=== PATIENT | female | born 1935 | race Caucasian/White ===

== ENCOUNTER 2022-04-14 10:15 | Outpatient (RCR) | payer MEDICARE, OTHER, MEDICAID, SELFPAY ==
[2022-04-07 10:12] VITALS: TEMP 36.1
--- NOTE | 2022-04-07 12:40 | PCM.WC.HP ---
History of Present Illness Date of Service: 04/07/22 Chief Complaint: Follow-up on open wounds around her ostomy History of Wound: This is a 87-year-old white female that had a bowel obstruction and was given a colostomy approximately 2 years ago. She lives in assisted living and usually takes care of it with a aide or herself. Poor historian not sure when all the sores developed around the ostomy opening but she has open wounds and skin irritation. Has been going to another wound center and she is getting discouraged because her not doing anything. We talked to our ostomy nurse from the hospital to come over and take a look at what she thought. She also felt her ostomy cuff was too stiff and found her a softer 1 that might not be as irritating and cause any bruising. She has some discoloration like and little bit of a hardness on the inferior side of the ostomy also. She also had developed like a skin tag and a little bridge of skin that we will removed today. ROS Constitutional Constitutional: Reports systems reviewed and no addt'l complaints, except as documented Eyes Eyes: Reports systems reviewed and no addt'l complaints, except as documented ENT HEENT: Reports systems reviewed and no addt'l complaints, except as documented Cardiovascular Cardiovascular: Reports systems reviewed and no addt'l complaints, except as documented Respiratory/Chest Respiratory/Chest: Reports systems reviewed and no addt'l complaints, except as documented Gastrointestinal Gastrointestinal: Reports systems reviewed and no addt'l complaints, except as documented Genitourinary Genitourinary: Reports systems reviewed and no addt'l complaints, except as documented Musculoskeletal Musculoskeletal: Reports systems reviewed and no addt'l complaints, except as documented Integumentary Integumentary: Reports other Details: Irritation and open sores around ostomy area on left lower quadrant Neurologic Neurologic: Reports systems reviewed and no addt'l complaints, except as documented Psychiatric Psychiatric: Reports systems reviewed and no addt'l complaints, except as documented Endocrine Endocrinology: Reports systems reviewed and no addt'l complaints, except as documented Hematologic/Lymphatic Hematologic/Lymphatic: Reports systems reviewed and no addt'l complaints, except as documented Allergic/Immunologic Allergic/Immunologic: Reports systems reviewed and no addt'l complaints, except as documented Vital Signs Vital Signs Vital Signs: 04/07/22 10:12 Temperature 96.9 F L Temperature Source Temporal Physical Exam Const oriented x3 General Appearance: cooperative Exam Limitations: no limitations Resp normal respiratory effort Effort and Inspection: able to speak in complete sentences Auscultation: clear to auscultation bilaterally Cardio regular rate and regular rhythm Palpation: normal PMI Rate: regular rate Rhythm: regular rhythm GI Auscultation: normoactive bowel sounds Palpation: soft and no hepatosplenomegaly external exam normal Skin no rashes or lesions noted Neuro oriented x3 Psych Appearance: grossly normal Speech: normal speech Thought Content: normal thought content Judgement: judgement good Debridement Note Debridement Note Wound debrided: Cluster of ulcers around her colostomy Type of Debridement: Excisional debridement Anesthesia Used: 5% Lidocaine Gel Depth: Down to and including healthy tissue and in the subcutaneous layer Percentage of wound debrided: 100 Instrument Used: 5mm curette Tissue Removed: Fibrin Severity: Fat Layer Exposed Amount of bleeding with debridement: Mild Bleeding Controlled with: Compression and gauze Patient tolerated procedure: Patient tolerated procedure well Debridement Free Text: We also anesthetized superior side a very large skin tag with lidocaine 1% with epi and removed with a #15 blade and scissors cauterizing for the bleeding and she tolerated well Operative Diagnosis: Skin tag Post-Debridement Measurements and Additional Note: Post-Debridement Measurements/Treatment WC - Nurse 1 - General Ulcer Assessment Start: 04/07/22 10:11 Freq: Status: Active Protocol: TIMMY Activity Type Activity Date Activity User E-sign Co-sign Detail Recorded Client Recorded Date Recorded By Document 04/07/22 10:12 BRYON [id number] 04/07/22 10:17 BRYON 04/07/22 10:12 MICHAEL - Today's Visit Information Type of service Initial Visit Arrival Mode Ambulatory, Walker Patient Identification Verified (Name & Yes ) Patient Requires Transmission-Based No Precautions Safety Precautions NA Vital Signs Temperature (97.8 F-99.1 F) 96.9 F L Temperature Source Temporal Pain Scale: 0-10 Numeric Is Patient Pain Free? Yes - Nurse 1 - General Ulcer Measurement Start: 04/07/22 10:11 Freq: Status: Active Protocol: Activity Type Activity Date Activity User E-sign Co-sign Detail Recorded Client Recorded Date Recorded By Document 04/07/22 10:12 BRYON [id number] 04/07/22 10:17 AK 04/07/22 10:12 Wound Center Nurse 1 #1 ABD cluster -Current Size (cm) - Length 6.4 -Current Size (cm) - Width 8.4 -Current Size (cm) - Depth 0.2 -Total Square Cm 53.76 -Date of Last Picture (Recall this 04/07/22 field) -Photo Taken Yes -Tunneling No -Undermining/Tunneling No -Circular Undermining No -Change in Wound Grade/Stage No -Exudate Amt Medium -Exudate Type Serosanguineous -Wound Margin Distinct, Outline Attached -Granulation Amt Medium (34-66%) -Granulation Quality [place],Red -Slough/Fibrin No -Necrosis Amt None Present (0 %) -Structure Exposed N/A -Texture (Linda-wound Skin Appearance) Assessed, Localized Edema ,Scarring -Moisture (Linda-wound Skin Appearance) No Abnormality, Assessed -Color (Linda-wound Skin Appearance) Assessed, Erythema -Temperature (Linda-wound Skin No Abnormality Appearance) (Pt Warm) -Tenderness on Palpation (Linda-wound No Skin Appearance) -Foul Odor after Cleansing No WC - Nurse 2 - General Ulcer CM Notes Start: 04/07/22 10:11 Freq: Status: Active Protocol: Activity Type Activity Date Activity User E-sign Co-sign Detail Recorded Client Recorded Date Recorded By Document 04/07/22 10:45 MW [id number] 04/07/22 11:24 MW 04/07/22 10:45 Wound Center Nurse 2 -Time 10:45 -Correct Patient Yes -Correct Side, Site, Position Yes -Correct Procedure Yes -Procedure Performed Yes -Type of Procedure Debridement -Clinical Debridement Subcutaneous -Tissue Removed Subcutaneous -Post Debridement (cm) - Length 6.5 -Post Debridement (cm) - Width 8.5 -Post Debridement (cm) - Depth 0.2 -Total Square (Post) (cm) 55.25 -Area of Debridement (cm) - Length 6.5 -Area of Debridement (cm) - Width 8.5 -Total Square (Area) (cm) 55.25 -Tunneling No -Undermining/Tunneling No -Circular Undermining No -Wound/Ulcer Outcome Not Healed -Ulcer Cleansing Rinsed/ Irrigated with Saline -Foul Odor after Cleansing No -Bioengineered Tissue No -Bleeding Controlled with Pressure,Silver Nitrate -Treatment Response Procedure Tolerated Well -Offloading No -Debridement - Subq, 1st 20sq cm Yes -Debridement, SubQ, ea addt'l 20sq cm 2 or part thereof Pain Scale: 0-10 Numeric Is Patient Pain Free? Yes WC - Nurse 3 - General Ulcer D/C NN Start: 04/07/22 10:11 Freq: Status: Active Protocol: Activity Type Activity Date Activity User E-sign Co-sign Detail Recorded Client Recorded Date Recorded By Document 04/07/22 10:12 BRYON [id number] 04/07/22 10:17 BRYON 04/07/22 10:12 Vital Signs Temperature (97.8 F-99.1 F) 96.9 F L Temperature Source Temporal Pain Scale: 0-10 Numeric Is Patient Pain Free? 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 Area of colostomy bag with antibacterial soap pat dry and Aquacel extra to wound bases of the ulcers cover with ComfeeL and then flange softer that is not stiff. And this will be done every other day. Patient is to repeat be referred back to her surgeon Follow-up in 1 week
[2022-04-14 10:24] VITALS: BP 176/77; PULSE 72; RESP 22; TEMP 36; O2SAT 90
--- NOTE | 2022-04-14 12:06 | PN.PCM_ITS ---
History of Present Illness Date of Service: 04/14/22 Chief Complaint: Follow-up on open wounds around her ostomy History of Wound: This is a 87-year-old white female that had a bowel obstruction and was given a colostomy approximately 2 years ago. She lives in assisted living and usually takes care of it with a aide or herself. Poor historian not sure when all the sores developed around the ostomy opening but she has open wounds and skin irritation. Has been going to another wound center and she is getting discouraged because her not doing anything. We talked to our ostomy nurse from the hospital to come over and take a look at what she thought. She also felt her ostomy cuff was too stiff and found her a softer 1 that might not be as irritating and cause any bruising. She has some discoloration like and little bit of a hardness on the inferior side of the ostomy also. She also had developed like a skin tag and a little bridge of skin that we will removed today. Progress of Wound: Just receiving the supplies today for her wound care. The wounds have not worsened but improving slightly. Did finally get the name of the surgeon to her refer her to. Patient states her rectum falls out he also. She does have a prolapsed colostomy to. Cultures obtained from area around because of the area and the stool. Patient also complaining of wheezing and not feeling well for x1 day. We will send her to the emergency room in [place]. Her assisted living is close to that emergency room Subjective Subjective States having some hard time sleeping at night for the breathing problem and coughing Objective Data Objective Data As stated above no real change because she has not had any of the dressing changes that we have had came to us without an extra bag so we had to go to the hospital to get another bag for her. Areas of concern are not worsening. We will continue seeing her but we will refer her back to her surgeon. Obtained cultures for aerobic and anaerobic bacteria Vital Signs: Vital Signs Temp Pulse Resp BP Pulse Ox O2 Del Method 96.8 F L 72 22 H 176/77 H 90 Room Air 04/14/22 10:24 04/14/22 10:24 04/14/22 10:24 04/14/22 10:24 04/14/22 10:24 04/14/22 10:24 Oxygen Delivery Method Room Air Lab / Micro Data Attestation: I reviewed the patient's lab results. Physical Exam Const oriented x3 General Appearance: cooperative Exam Limitations: no limitations Resp normal respiratory effort Effort and Inspection: able to speak in complete sentences Auscultation: clear to auscultation bilaterally Cardio regular rate and regular rhythm Palpation: normal PMI Rate: regular rate Rhythm: regular rhythm GI Auscultation: normoactive bowel sounds Palpation: soft and no hepatosplenomegaly external exam normal Skin no rashes or lesions noted Neuro oriented x3 Psych Appearance: grossly normal Speech: normal speech Thought Content: normal thought content Judgement: judgement good Debridement Note Debridement Note Wound debrided: Nonhealing cluster wounds around ostomy Type of Debridement: Excisional debridement Anesthesia Used: 5% Lidocaine Gel Depth: Down to and including healthy tissue Percentage of wound debrided: 100 Instrument Used: 7mm curette Tissue Removed: Fibrin Severity: Limited To Skin Breakdown Amount of bleeding with debridement: Mild Bleeding Controlled with: Compression and gauze Patient tolerated procedure: Patient tolerated procedure well Post-Debridement Measurements and Additional Note: Post-Debridement Measurements/Treatment - Nurse 1 - General Ulcer Assessment Start: 04/07/22 10:11 Freq: Status: Active Protocol: [email or web address].JAMEE Activity Type Activity Date Activity User E-sign Co-sign Detail Recorded Client Recorded Date Recorded By Document 04/07/22 10:12 [facility] [id number] 04/07/22 10:17 UT Document 04/14/22 10:24 [facility] [id number] 04/14/22 10:45 [facility] 04/07/22 04/14/22 10:12 10:24 - Today's Visit Information Type of service Initial Visit Follow-up Visit (Physician/CLINICAL ORTHOPTIST ) Arrival Mode Ambulatory, Ambulatory, Walker Walker Transfer Assistance None Patient Identification Verified (Name & Yes Yes ) Patient Requires Transmission-Based No No Precautions Safety Precautions NA Vital Signs Temperature (97.8 F-99.1 F) 96.9 F L 96.8 F L Temperature Source Temporal Temporal Pulse Rate (60-100) 72 Pulse Location Monitor Respiratory Rate (12-18) 22 H Respiratory rate source Observation Pulse Oximetry 90 Oxygen Delivery Method Room Air Blood Pressure (90/60-120/80) 176/77 H Blood Pressure Mean (mm Hg) 110 Source Monitor Position Sitting Blood Pressure Location Right Arm History Since Last Visit- (Skip if this is Patient's initial visit) Have you changed medications since your No last visit? Any new allergies or adverse reactions No Had a fall/change in ADL's that may No increase risk of falls Signs or symptoms of abuse and/or No neglect since last visit Have you been in the hospital since your No last visit? Has dressing in place as prescribed No Has compression in place as prescribed N/A Has offloadiing in place as prescribed N/A Experienced any changes in pain level or No management Left Footwear Regular Shoe Right Footwear Regular Shoe Pain Scale: 0-10 Numeric Is Patient Pain Free? Yes Yes WC - Nurse 1 - General Ulcer Measurement Start: 04/07/22 10:11 Freq: Status: Active Protocol: Activity Type Activity Date Activity User E-sign Co-sign Detail Recorded Client Recorded Date Recorded By Document 04/07/22 10:12 UT [id number] 04/07/22 10:17 AK Document 04/14/22 10:24 [facility] [id number] 04/14/22 10:45 [facility] 04/07/22 04/14/22 10:12 10:24 Wound Center Nurse 1 #1 ABD cluster -Combined with other wound No -Current Size (cm) - Length 6.4 6 -Current Size (cm) - Width 8.4 6 -Current Size (cm) - Depth 0.2 0.1 -Total Square Cm 53.76 36 -Date of Last Picture (Recall this 04/07/22 04/14/22 field) -Photo Taken Yes Yes -Epithelialization None Present -Tunneling No No -Undermining/Tunneling No No -Circular Undermining No No -Change in Wound Grade/Stage No -Exudate Amt Medium -Exudate Type Serosanguineous -Wound Margin Distinct, Distinct, Outline Outline Attached Attached -Granulation Amt Medium (34-66%) Large (67-100%) -Granulation Quality [place],Red Red -Slough/Fibrin No No -Necrosis Amt None Present (0 None Present (0 %) %) -Structure Exposed N/A -Texture (Linda-wound Skin Appearance) Assessed, Assessed, Localized Edema Scarring ,Scarring -Moisture (Linda-wound Skin Appearance) No Abnormality, Assessed Assessed -Color (Linda-wound Skin Appearance) Assessed, Assessed Erythema -Temperature (Linda-wound Skin No Abnormality No Abnormality Appearance) (Pt Warm) (Pt Warm) -Tenderness on Palpation (Linda-wound No No Skin Appearance) -Ulcer Cleansing Soap and Water -Foul Odor after Cleansing No No -Anesthetic Used 4% Lidocaine Solution WC - Nurse 2 - General Ulcer CM Notes Start: 04/07/22 10:11 Freq: Status: Active Protocol: Activity Type Activity Date Activity User E-sign Co-sign Detail Recorded Client Recorded Date Recorded By Document 04/07/22 10:45 MW [id number] 04/07/22 11:24 MW Document 04/14/22 10:50 MW [id number] 04/14/22 11:01 MW 04/07/22 04/14/22 10:45 10:50 Wound Center Nurse 2 #1 ABD cluster -Time 10:45 11:01 -Correct Patient Yes Yes -Correct Side, Site, Position Yes Yes -Correct Procedure Yes Yes -Procedure Performed Yes Yes -Type of Procedure Debridement Debridement -Clinical Debridement Subcutaneous Subcutaneous -Tissue Removed Subcutaneous Subcutaneous -Post Debridement (cm) - Length 6.5 6.0 -Post Debridement (cm) - Width 8.5 8.5 -Post Debridement (cm) - Depth 0.2 0.2 -Total Square (Post) (cm) 55.25 51.00 -Area of Debridement (cm) - Length 6.5 6.0 -Area of Debridement (cm) - Width 8.5 8.5 -Total Square (Area) (cm) 55.25 51.00 -Tunneling No No -Undermining/Tunneling No No -Circular Undermining No No -Wound/Ulcer Outcome Not Healed Not Healed -Ulcer Cleansing Rinsed/ Rinsed/ Irrigated with Irrigated with Saline Saline -Foul Odor after Cleansing No No -Bioengineered Tissue No No -Bleeding Controlled with Pressure,Silver Pressure Nitrate -Treatment Response Procedure Procedure Tolerated Well Tolerated Well -Offloading No No -Debridement - Subq, 1st 20sq cm Yes Yes -Debridement, SubQ, ea addt'l 20sq cm 2 2 or part thereof Pain Scale: 0-10 Numeric Is Patient Pain Free? Yes Yes MICHAEL - Nurse 3 - General Ulcer D/C NN Start: 04/07/22 10:11 Freq: Status: Active Protocol: Activity Type Activity Date Activity User E-sign Co-sign Detail Recorded Client Recorded Date Recorded By Document 04/07/22 10:12 [facility] [id number] 04/07/22 10:17 AK Document 04/14/22 11:08 [facility] [id number] 04/14/22 11:09 [facility] 04/07/22 04/14/22 10:12 11:08 Vital Signs Temperature (97.8 F-99.1 F) 96.9 F L Temperature Source Temporal Pain Scale: 0-10 Numeric Is Patient Pain Free? 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 Area of colostomy bag with antibacterial soap pat dry and Aquacel extra to wound bases of the ulcers cover with ComfeeL and then flange softer that is not stiff. And this will be done every other day. Patient is to repeat be referred back to her surgeon Will call with culture results as they come in. Follow-up in 1 week
--- NOTE | 2022-04-16 14:47 | WC ---
Spoke to nurse at [facility] to follow up on patient office visit on 04/14/22 with Laura Armas OPERATIONS CONSULTANT. Patient was having audible wheezing and coughing so Luara recommended patient be evaluated at ER. Patient requested to go to [facility] ER. Nurse at [facility] stated patient tested positive for influenza A but is doing well. Laura notified.
== END 2022-04-14 23:59 | disposition home or self-care (01) ==
LOC: WC 10:15
PROVIDERS: PCP Family Medicine; Visit Provider Nurse Practitioner
DX: K94.09 Other complications of colostomy (principal); L98.492 Non-pressure chronic ulcer of skin of other sites with fat layer exposed
CPT/HCPCS: 11042; 11045; 87070; 87075; 87077; 87186; 87205; 99203; 99213; G0463

== ENCOUNTER 2022-05-12 10:00 | Outpatient (RCR) | payer MEDICARE, OTHER, MEDICAID, SELFPAY ==
[2022-04-15 00:41] VITALS: BP 176/77; PULSE 72; RESP 22; TEMP 36; O2SAT 90
[2022-04-21 10:33] VITALS: BP 146/66; PULSE 79; RESP 16; TEMP 35.9
--- NOTE | 2022-04-21 12:10 | PN.PCM_ITS ---
History of Present Illness Date of Service: 04/21/22 Chief Complaint: Follow-up on open wounds around her ostomy History of Wound: This is a 87-year-old white female that had a bowel obstruction and was given a colostomy approximately 2 years ago. She lives in assisted living and usually takes care of it with a aide or herself. Poor historian not sure when all the sores developed around the ostomy opening but she has open wounds and skin irritation. Has been going to another wound center and she is getting discouraged because her not doing anything. We talked to our ostomy nurse from the hospital to come over and take a look at what she thought. She also felt her ostomy cuff was too stiff and found her a softer 1 that might not be as irritating and cause any bruising. She has some discoloration like and little bit of a hardness on the inferior side of the ostomy also. She also had developed like a skin tag and a little bridge of skin that we will removed today. Progress of Wound: Wounds today around the stoma look much better. Cultures came back positive for cocci and bacteria patient is started on 2 medications and antibiotic and antimicrobial. Patient also had influenza A and is feeling better over that still has some cough. Subjective Subjective Patient is pleasantly surprised with how the outcomes are Objective Data Objective Data Measurements are smaller healing is better less angry depth is better patient is tolerating medications okay. Vital Signs: Vital Signs Temp Pulse Resp BP Pulse Ox O2 Del Method 96.6 F L 79 16 146/66 H 90 Room Air 04/21/22 10:33 04/21/22 10:33 04/21/22 10:33 04/21/22 10:33 04/15/22 00:41 04/21/22 10:33 Oxygen Delivery Method Room Air Lab / Micro Data Attestation: I reviewed the patient's lab results. Physical Exam Const oriented x3 General Appearance: cooperative Exam Limitations: no limitations Resp normal respiratory effort Effort and Inspection: able to speak in complete sentences Auscultation: clear to auscultation bilaterally Cardio regular rate and regular rhythm Palpation: normal PMI Rate: regular rate Rhythm: regular rhythm GI Auscultation: normoactive bowel sounds Palpation: soft and no hepatosplenomegaly external exam normal Skin no rashes or lesions noted Neuro oriented x3 Psych Appearance: grossly normal Speech: normal speech Thought Content: normal thought content Judgement: judgement good Debridement Note Debridement Note Wound debrided: Cluster ulcers around stoma Type of Debridement: Excisional debridement Anesthesia Used: 4% Lidocaine Solution and 5% Lidocaine Gel Depth: Down to and including healthy tissue and in the subcutaneous layer Percentage of wound debrided: 100 Instrument Used: 5mm curette Tissue Removed: Fibrin Severity: Fat Layer Exposed Amount of bleeding with debridement: Mild Bleeding Controlled with: Compression and gauze Patient tolerated procedure: Patient tolerated procedure well Post-Debridement Measurements and Additional Note: Post-Debridement Measurements/Treatment WC - Nurse 1 - General Ulcer Assessment Start: 04/21/22 10:29 Freq: Status: Active Protocol: TIMMY Activity Type Activity Date Activity User E-sign Co-sign Detail Recorded Client Recorded Date Recorded By Document 04/21/22 10:33 BRYON [id number] 04/21/22 10:36 BRYON 04/21/22 10:33 WC - Today's Visit Information Type of service Follow-up Visit (Physician/AUTOMATED PROCESS OPERATOR ) Arrival Mode Ambulatory, Walker Transfer Assistance None Patient Identification Verified (Name & Yes ) Patient Requires Transmission-Based No Precautions Vital Signs Temperature (97.8 F-99.1 F) 96.6 F L Temperature Source Temporal Pulse Rate (60-100) 79 Pulse Location Monitor Respiratory Rate (12-18) 16 Respiratory rate source Observation Oxygen Delivery Method Room Air Blood Pressure (90/60-120/80) 146/66 H Blood Pressure Mean (mm Hg) 92 Source Monitor Position Sitting Blood Pressure Location Right Arm History Since Last Visit- (Skip if this is Patient's initial visit) Any new allergies or adverse reactions No Had a fall/change in ADL's that may No increase risk of falls Signs or symptoms of abuse and/or No neglect since last visit Have you been in the hospital since your No last visit? Has dressing in place as prescribed Yes Has compression in place as prescribed N/A Has offloadiing in place as prescribed N/A Experienced any changes in pain level or No management Left Footwear Regular Shoe Right Footwear Regular Shoe Pain Scale: 0-10 Numeric Is Patient Pain Free? Yes MICHAEL - Nurse 1 - General Ulcer Measurement Start: 04/21/22 10:29 Freq: Status: Active Protocol: Activity Type Activity Date Activity User E-sign Co-sign Detail Recorded Client Recorded Date Recorded By Document 12/07/22 10:33 AK [id number] 04/21/22 10:36 AK 04/21/22 10:33 Wound Center Nurse 1 #1 ABD cluster -Combined with other wound No -Current Size (cm) - Length 6 -Current Size (cm) - Width 5 -Current Size (cm) - Depth 0.1 -Total Square Cm 30 -Date of Last Picture (Recall this 04/21/22 field) -Photo Taken Yes -Epithelialization Small 1-33% -Tunneling No -Undermining/Tunneling No -Circular Undermining No -Exudate Amt Medium -Exudate Type Serosanguineous -Wound Margin Distinct, Outline Attached -Granulation Amt Medium (34-66%) -Granulation Quality Red -Slough/Fibrin Yes -Necrosis Amt Medium (34-66%) -Necrotic Tissue Type Adherent Slough -Texture (Linda-wound Skin Appearance) Assessed, Scarring -Moisture (Linda-wound Skin Appearance) Assessed -Color (Linda-wound Skin Appearance) No Abnormality, Erythema -Temperature (Linda-wound Skin No Abnormality Appearance) (Pt Warm) -Tenderness on Palpation (Linda-wound No Skin Appearance) -Ulcer Cleansing Soap and Water -Foul Odor after Cleansing No -Anesthetic Used 4% Lidocaine Solution WC - Nurse 2 - General Ulcer CM Notes Start: 04/21/22 10:29 Freq: Status: Active Protocol: Activity Type Activity Date Activity User E-sign Co-sign Detail Recorded Client Recorded Date Recorded By Document 04/21/22 10:44 MW [id number] 04/21/22 10:47 MW 04/21/22 10:44 Wound Center Nurse 2 -Time 10:44 -Correct Patient Yes -Correct Side, Site, Position Yes -Correct Procedure Yes -Procedure Performed Yes -Type of Procedure Debridement -Clinical Debridement Subcutaneous -Tissue Removed Subcutaneous -Post Debridement (cm) - Length 6.0 -Post Debridement (cm) - Width 6.5 -Post Debridement (cm) - Depth 0.1 -Total Square (Post) (cm) 39.00 -Area of Debridement (cm) - Length 6.0 -Area of Debridement (cm) - Width 6.5 -Total Square (Area) (cm) 39.00 -Tunneling No -Undermining/Tunneling No -Circular Undermining No -Wound/Ulcer Outcome Not Healed -Ulcer Cleansing Rinsed/ Irrigated with Saline -Foul Odor after Cleansing No -Bioengineered Tissue No -Bleeding Controlled with Pressure -Treatment Response Procedure Tolerated Well -Offloading No -Debridement - Subq, 1st 20sq cm Yes -Debridement, SubQ, ea addt'l 20sq cm 1 or part thereof Pain Scale: 0-10 Numeric Is Patient Pain Free? Yes - Nurse 3 - General Ulcer D/C NN Start: 04/21/22 10:29 Freq: Status: Active Protocol: Activity Type Activity Date Activity User E-sign Co-sign Detail Recorded Client Recorded Date Recorded By Document 04/21/22 11:33 BRYON [id number] 04/21/22 11:34 BRYON 04/21/22 11:33 Wound Care Nurse 3 #1 ABD cluster -Ulcer Cleansing Rinsed/ Irrigated with Saline -Foul Odor after Cleansing No -Negative Pressure Wound Therapy N/A -Primary Dressing Applied Aquacel AG 4x4 -Other Dressing DUODERM UNDER FLANGE OVER AQUACEL -Aquacel AG 4x4 1 Pain Scale: 0-10 Numeric Is Patient Pain Free? 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 Area of colostomy bag with antibacterial soap pat dry and Aquacel extra to wound bases of the ulcers cover with ComfeeL and then flange softer that is not stiff. And this will be done every other day. Patient is to repeat be referred back to her surgeon Will call with culture results as they come in. Follow-up in 1 week
[2022-04-28 10:47] VITALS: BP 144/75; PULSE 69; TEMP 35.9
--- NOTE | 2022-04-28 12:27 | PN.PCM_ITS ---
History of Present Illness Date of Service: 04/28/22 Chief Complaint: Follow-up on open wounds around her ostomy History of Wound: This is a 87-year-old white female that had a bowel obstruction and was given a colostomy approximately 2 years ago. She lives in assisted living and usually takes care of it with a aide or herself. Poor historian not sure when all the sores developed around the ostomy opening but she has open wounds and skin irritation. Has been going to another wound center and she is getting discouraged because her not doing anything. We talked to our ostomy nurse from the hospital to come over and take a look at what she thought. She also felt her ostomy cuff was too stiff and found her a softer 1 that might not be as irritating and cause any bruising. She has some discoloration like and little bit of a hardness on the inferior side of the ostomy also. She also had developed like a skin tag and a little bridge of skin that we will removed today. Progress of Wound: Wounds today around the stoma look much better. Showing some hypergranulation around the stoma now and most of it is closed small portion in the right lower quadrant area of the stoma area is still open. Measurements are much smaller. Patient still has not seen by her surgeon. I think using the softer flange has made a big difference in her care. We will continue using the Aquacel silver and the clear cannot feel trans parent cover under the flange. Patient appears to suffer from a little bit of dementia and gets confused easily. Subjective Subjective She still complains of problems but it really is healing well Objective Data Objective Data Overall area is smaller healing no sign of infection noted. She did have some hyper granulation I will hit with some nitro sticks to back off. Vital Signs: Vital Signs Temp Pulse Resp BP Pulse Ox O2 Del Method 96.6 F L 69 16 144/75 H 90 Room Air 04/28/22 10:47 04/28/22 10:47 04/21/22 10:33 04/28/22 10:47 04/15/22 00:41 04/21/22 10:33 Oxygen Delivery Method Room Air Lab / Micro Data Attestation: I reviewed the patient's lab results. Physical Exam Const oriented x3 General Appearance: cooperative Exam Limitations: no limitations Resp normal respiratory effort Effort and Inspection: able to speak in complete sentences Auscultation: clear to auscultation bilaterally Cardio regular rate and regular rhythm Palpation: normal PMI Rate: regular rate Rhythm: regular rhythm GI Auscultation: normoactive bowel sounds Palpation: soft and no hepatosplenomegaly external exam normal Skin no rashes or lesions noted Neuro oriented x3 Psych Appearance: grossly normal Speech: normal speech Thought Content: normal thought content Judgement: judgement good Debridement Note Debridement Note Wound debrided: Stoma cluster ulcers Type of Debridement: Excisional debridement Anesthesia Used: 5% Lidocaine Gel Depth: in the subcutaneous layer Percentage of wound debrided: 100 Instrument Used: 3mm curette Tissue Removed: Fibrin Severity: Limited To Skin Breakdown Amount of bleeding with debridement: Mild Bleeding Controlled with: Compression and gauze and Silver Nitrate Patient tolerated procedure: Patient tolerated procedure well Post-Debridement Measurements and Additional Note: Post-Debridement Measurements/Treatment - Nurse 1 - General Ulcer Assessment Start: 04/21/22 10:29 Freq: Status: Active Protocol: TIMMY Activity Type Activity Date Activity User E-sign Co-sign Detail Recorded Client Recorded Date Recorded By Document 04/21/22 10:33 MS [id number] 04/21/22 10:36 MS Document 04/28/22 10:47 MS [id number] 04/28/22 10:49 MS 04/21/22 04/28/22 10:33 10:47 - Today's Visit Information Type of service Follow-up Visit Follow-up Visit (Physician/INSPECTOR SALVAGE (Physician/INSPECTOR SALVAGE ) ) Arrival Mode Ambulatory, Ambulatory, Walker Walker Transfer Assistance None Patient Identification Verified (Name & Yes Yes ) Patient Requires Transmission-Based No No Precautions Vital Signs Temperature (97.8 F-99.1 F) 96.6 F L 96.6 F L Temperature Source Temporal Temporal Pulse Rate (60-100) 79 69 Pulse Location Monitor Monitor Respiratory Rate (12-18) 16 Respiratory rate source Observation Oxygen Delivery Method Room Air Blood Pressure (90/60-120/80) 146/66 H 144/75 H Blood Pressure Mean (mm Hg) 92 98 Source Monitor Monitor Position Sitting Blood Pressure Location Right Arm History Since Last Visit- (Skip if this is Patient's initial visit) Have you changed medications since your No last visit? Any new allergies or adverse reactions No No Had a fall/change in ADL's that may No No increase risk of falls Signs or symptoms of abuse and/or No No neglect since last visit Have you been in the hospital since your No No last visit? Has dressing in place as prescribed Yes Yes Has compression in place as prescribed N/A N/A Has offloadiing in place as prescribed N/A N/A Experienced any changes in pain level or No No management Left Footwear Regular Shoe Regular Shoe Right Footwear Regular Shoe Regular Shoe Pain Scale: 0-10 Numeric Is Patient Pain Free? Yes Yes WC - Nurse 1 - General Ulcer Measurement Start: 04/21/22 10:29 Freq: Status: Active Protocol: Activity Type Activity Date Activity User E-sign Co-sign Detail Recorded Client Recorded Date Recorded By Document 04/21/22 10:33 MS [id number] 04/21/22 10:36 AK Document 04/28/22 10:47 MS [id number] 04/28/22 10:49 AK 04/21/22 04/28/22 10:33 10:47 Wound Center Nurse 1 #1 ABD cluster -Combined with other wound No No -Current Size (cm) - Length 6 6 -Current Size (cm) - Width 5 3 -Current Size (cm) - Depth 0.1 0.1 -Total Square Cm 30 18 -Date of Last Picture (Recall this 04/21/22 field) -Photo Taken Yes No -Epithelialization Small 1-33% -Tunneling No No -Undermining/Tunneling No No -Circular Undermining No No -Change in Wound Grade/Stage No -Exudate Amt Medium Medium -Exudate Type Serosanguineous Serosanguineous -Wound Margin Distinct, Distinct, Outline Outline Attached Attached -Granulation Amt Medium (34-66%) Large (67-100%) -Granulation Quality Red [place] -Slough/Fibrin Yes No -Necrosis Amt Medium (34-66%) None Present (0 %) -Necrotic Tissue Type Adherent Slough -Structure Exposed N/A -Texture (Linda-wound Skin Appearance) Assessed, Assessed, Scarring Excoriation, Rash -Moisture (Linda-wound Skin Appearance) Assessed No Abnormality, Assessed -Color (Linda-wound Skin Appearance) No Abnormality, Assessed, Erythema Erythema -Temperature (Linda-wound Skin No Abnormality No Abnormality Appearance) (Pt Warm) (Pt Warm) -Tenderness on Palpation (Linda-wound No No Skin Appearance) -Ulcer Cleansing Soap and Water Soap and Water -Foul Odor after Cleansing No No -Anesthetic Used 4% Lidocaine 4% Lidocaine Solution Solution -Wound Comment(s) Flange taped on with stool all underneath. MICHAEL - Nurse 2 - General Ulcer CM Notes Start: 04/21/22 10:29 Freq: Status: Active Protocol: Activity Type Activity Date Activity User E-sign Co-sign Detail Recorded Client Recorded Date Recorded By Document 04/21/22 10:44 MW [id number] 04/21/22 10:47 MW Document 04/28/22 11:01 MW [id number] 04/28/22 11:05 MW 04/21/22 04/28/22 10:44 11:01 Wound Center Nurse 2 #1 ABD cluster -Time 10:44 11:01 -Correct Patient Yes Yes -Correct Side, Site, Position Yes Yes -Correct Procedure Yes Yes -Procedure Performed Yes Yes -Type of Procedure Debridement Debridement -Clinical Debridement Subcutaneous Subcutaneous -Tissue Removed Subcutaneous Subcutaneous -Post Debridement (cm) - Length 6.0 6.0 -Post Debridement (cm) - Width 6.5 3.0 -Post Debridement (cm) - Depth 0.1 0.1 -Total Square (Post) (cm) 39.00 18.00 -Area of Debridement (cm) - Length 6.0 6.0 -Area of Debridement (cm) - Width 6.5 3.0 -Total Square (Area) (cm) 39.00 18.00 -Tunneling No No -Undermining/Tunneling No No -Circular Undermining No No -Wound/Ulcer Outcome Not Healed Not Healed -Ulcer Cleansing Rinsed/ Rinsed/ Irrigated with Irrigated with Saline Saline -Foul Odor after Cleansing No No -Bioengineered Tissue No No -Bleeding Controlled with Pressure Pressure,Silver Nitrate -Treatment Response Procedure Procedure Tolerated Well Tolerated Well -Offloading No No -Debridement - Subq, 1st 20sq cm Yes Yes -Debridement, SubQ, ea addt'l 20sq cm 1 or part thereof Pain Scale: 0-10 Numeric Is Patient Pain Free? Yes Yes MICHAEL - Nurse 3 - General Ulcer D/C NN Start: 04/21/22 10:29 Freq: Status: Active Protocol: Activity Type Activity Date Activity User E-sign Co-sign Detail Recorded Client Recorded Date Recorded By Document 04/21/22 11:33 MS [id number] 04/21/22 11:34 AK Document 04/28/22 11:21 [facility] [id number] 04/28/22 11:22 [facility] 04/21/22 04/28/22 11:33 11:21 Wound Care Nurse 3 #1 ABD cluster -Ulcer Cleansing Rinsed/ Soap and Water Irrigated with Saline -Foul Odor after Cleansing No No -Negative Pressure Wound Therapy N/A -Primary Dressing Applied Aquacel AG 4x4 Aquacel AG 4x4, Hydrocolloid -Other Dressing DUODERM UNDER FLANGE OVER AQUACEL -Aquacel AG 4x4 1 1 -Hydrocolloid 1 Treatment Response Procedure Tolerated Well Pain Scale: 0-10 Numeric Is Patient Pain Free? 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 Area of colostomy bag with antibacterial soap pat dry and Aquacel AG to wound bases of the ulcers cover with ComfeeL and then flange softer that is not stiff. And this will be done every other day. Patient is to repeat be referred back to her surgeon Follow-up in 1 week
[2022-05-05 10:07] VITALS: BP 158/67; PULSE 70; TEMP 35.9
--- NOTE | 2022-05-05 11:42 | PN.PCM_ITS ---
History of Present Illness Date of Service: 05/05/22 Chief Complaint: Follow-up on open wounds around her ostomy History of Wound: This is a 87-year-old white female that had a bowel obstruction and was given a colostomy approximately 2 years ago. She lives in assisted living and usually takes care of it with a aide or herself. Poor historian not sure when all the sores developed around the ostomy opening but she has open wounds and skin irritation. Has been going to another wound center and she is getting discouraged because her not doing anything. We talked to our ostomy nurse from the hospital to come over and take a look at what she thought. She also felt her ostomy cuff was too stiff and found her a softer 1 that might not be as irritating and cause any bruising. She has some discoloration like and little bit of a hardness on the inferior side of the ostomy also. She also had developed like a skin tag and a little bridge of skin that we will removed today. Progress of Wound: Wounds today around the stoma look much better. Showing some hypergranulation around the stoma now and most of it is closed small portion in the right lower quadrant area of the stoma area is still open. Measurements are much smaller. Patient still has not seen by her surgeon. I think using the softer flange has made a big difference in her care. We will continue using the Aquacel silver and the clear cannot feel trans parent cover under the flange. Patient appears to suffer from a little bit of dementia and gets confused easily. Subjective Subjective Patient states it looks better so does the correction Objective Data Objective Data Patient should be healed within the next following week areas are much smaller this week and she seems to be hypergranulating. Vital Signs: Vital Signs Temp Pulse Resp BP Pulse Ox O2 Del Method 96.7 F L 70 16 158/67 H 90 Room Air 05/05/22 10:07 05/05/22 10:07 04/21/22 10:33 05/05/22 10:07 04/15/22 00:41 04/21/22 10:33 Oxygen Delivery Method Room Air Lab / Micro Data Attestation: I reviewed the patient's lab results. Physical Exam Const oriented x3 General Appearance: cooperative Exam Limitations: no limitations Resp normal respiratory effort Effort and Inspection: able to speak in complete sentences Auscultation: clear to auscultation bilaterally Cardio regular rate and regular rhythm Palpation: normal PMI Rate: regular rate Rhythm: regular rhythm GI Auscultation: normoactive bowel sounds Palpation: soft and no hepatosplenomegaly external exam normal Skin no rashes or lesions noted Neuro oriented x3 Psych Appearance: grossly normal Speech: normal speech Thought Content: normal thought content Judgement: judgement good Debridement Note Debridement Note Wound debrided: Abdominal cluster around ostomy Type of Debridement: Excisional debridement Anesthesia Used: 5% Lidocaine Gel Depth: Down to and including healthy tissue and in the subcutaneous layer Percentage of wound debrided: 100 Instrument Used: 7mm curette Tissue Removed: Fibrin Amount of bleeding with debridement: Mild Bleeding Controlled with: Compression and gauze and Silver Nitrate Patient tolerated procedure: Patient tolerated procedure well Post-Debridement Measurements and Additional Note: Post-Debridement Measurements/Treatment - Nurse 1 - General Ulcer Assessment Start: 04/21/22 10:29 Freq: Status: Active Protocol: TIMMY Activity Type Activity Date Activity User E-sign Co-sign Detail Recorded Client Recorded Date Recorded By Document 04/21/22 10:33 HI [id number] 04/21/22 10:36 HI Document 04/28/22 10:47 HI [id number] 04/28/22 10:49 HI Document 05/05/22 10:07 HI [id number] 05/05/22 10:09 HI 04/21/22 04/28/22 05/05/22 10:33 10:47 10:07 - Today's Visit Information Type of service Follow-up Visit Follow-up Visit Follow-up Visit (Physician/MARGIN ANALYST (Physician/MARGIN ANALYST (Physician/MARGIN ANALYST ) ) ) Arrival Mode Ambulatory, Ambulatory, Ambulatory Walker Walker Transfer Assistance None Patient Identification Verified (Name & Yes Yes Yes ) Patient Requires Transmission-Based No No No Precautions Safety Precautions NA Vital Signs Temperature (97.8 F-99.1 F) 96.6 F L 96.6 F L 96.7 F L Temperature Source Temporal Temporal Temporal Pulse Rate (60-100) 79 69 70 Pulse Location Monitor Monitor Monitor Respiratory Rate (12-18) 16 Respiratory rate source Observation Oxygen Delivery Method Room Air Blood Pressure (90/60-120/80) 146/66 H 144/75 H 158/67 H Blood Pressure Mean (mm Hg) 92 98 97 Source Monitor Monitor Monitor Position Sitting Blood Pressure Location Right Arm History Since Last Visit- (Skip if this is Patient's initial visit) Have you changed medications since your No No last visit? Any new allergies or adverse reactions No No No Had a fall/change in ADL's that may No No No increase risk of falls Signs or symptoms of abuse and/or No No No neglect since last visit Have you been in the hospital since your No No No last visit? Has dressing in place as prescribed Yes Yes Yes Has compression in place as prescribed N/A N/A N/A Has offloadiing in place as prescribed N/A N/A N/A Experienced any changes in pain level or No No No management Left Footwear Regular Shoe Regular Shoe Regular Shoe Right Footwear Regular Shoe Regular Shoe Regular Shoe Pain Scale: 0-10 Numeric Is Patient Pain Free? Yes Yes Yes WC - Nurse 1 - General Ulcer Measurement Start: 04/21/22 10:29 Freq: Status: Active Protocol: Activity Type Activity Date Activity User E-sign Co-sign Detail Recorded Client Recorded Date Recorded By Document 04/21/22 10:33 HI [id number] 04/21/22 10:36 HI Document 04/28/22 10:47 HI [id number] 04/28/22 10:49 AK Document 05/05/22 10:07 HI [id number] 05/05/22 10:09 AK 04/21/22 04/28/22 05/05/22 10:33 10:47 10:07 Wound Center Nurse 1 #1 ABD cluster -Combined with other wound No No No -Current Size (cm) - Length 6 6 7 -Current Size (cm) - Width 5 3 0.5 -Current Size (cm) - Depth 0.1 0.1 0.1 -Total Square Cm 30 18 3.5 -Date of Last Picture (Recall this 04/21/22 field) -Photo Taken Yes No Yes -Epithelialization Small 1-33% -Tunneling No No No -Undermining/Tunneling No No No -Circular Undermining No No No -Change in Wound Grade/Stage No No -Exudate Amt Medium Medium Medium -Exudate Type Serosanguineous Serosanguineous Serosanguineous -Wound Margin Distinct, Distinct, Distinct, Outline Outline Outline Attached Attached Attached -Granulation Amt Medium (34-66%) Large (67-100%) Medium (34-66%) -Granulation Quality Red Orient Orient,Red -Slough/Fibrin Yes No Yes -Necrosis Amt Medium (34-66%) None Present (0 Small (1-33%) %) -Necrotic Tissue Type Adherent Slough Adherent Slough -Structure Exposed N/A N/A -Texture (Linda-wound Skin Appearance) Assessed, Assessed, Assessed,Rash Scarring Excoriation, Rash -Moisture (Linda-wound Skin Appearance) Assessed No Abnormality, No Abnormality, Assessed Assessed -Color (Linda-wound Skin Appearance) No Abnormality, Assessed, Assessed, Erythema Erythema Erythema -Temperature (Linda-wound Skin No Abnormality No Abnormality No Abnormality Appearance) (Pt Warm) (Pt Warm) (Pt Warm) -Tenderness on Palpation (Linda-wound No No No Skin Appearance) -Ulcer Cleansing Soap and Water Soap and Water Soap and Water -Foul Odor after Cleansing No No No -Anesthetic Used 4% Lidocaine 4% Lidocaine 5% Lidocaine Solution Solution Gel -Wound Comment(s) Flange taped on with stool all underneath. WC - Nurse 2 - General Ulcer CM Notes Start: 04/21/22 10:29 Freq: Status: Active Protocol: Activity Type Activity Date Activity User E-sign Co-sign Detail Recorded Client Recorded Date Recorded By Document 04/21/22 10:44 MW [id number] 04/21/22 10:47 MW Document 04/28/22 11:01 MW [id number] 04/28/22 11:05 MW Document 05/05/22 10:09 MW [id number] 05/05/22 10:12 MW 04/21/22 04/28/22 05/05/22 10:44 11:01 10:09 Wound Center Nurse 2 #1 ABD cluster -Time 10:44 11:01 10:11 -Correct Patient Yes Yes Yes -Correct Side, Site, Position Yes Yes Yes -Correct Procedure Yes Yes Yes -Procedure Performed Yes Yes Yes -Type of Procedure Debridement Debridement Debridement -Clinical Debridement Subcutaneous Subcutaneous Subcutaneous -Tissue Removed Subcutaneous Subcutaneous Subcutaneous -Post Debridement (cm) - Length 6.0 6.0 1.0 -Post Debridement (cm) - Width 6.5 3.0 1.5 -Post Debridement (cm) - Depth 0.1 0.1 0.1 -Total Square (Post) (cm) 39.00 18.00 1.50 -Area of Debridement (cm) - Length 6.0 6.0 1.0 -Area of Debridement (cm) - Width 6.5 3.0 1.5 -Total Square (Area) (cm) 39.00 18.00 1.50 -Tunneling No No No -Undermining/Tunneling No No No -Circular Undermining No No No -Wound/Ulcer Outcome Not Healed Not Healed Not Healed -Ulcer Cleansing Rinsed/ Rinsed/ Rinsed/ Irrigated with Irrigated with Irrigated with Saline Saline Saline -Foul Odor after Cleansing No No No -Bioengineered Tissue No No No -Bleeding Controlled with Pressure Pressure,Silver Pressure Nitrate -Treatment Response Procedure Procedure Procedure Tolerated Well Tolerated Well Tolerated Well -Offloading No No No -Debridement - Subq, 1st 20sq cm Yes Yes Yes -Debridement, SubQ, ea addt'l 20sq cm 1 or part thereof Pain Scale: 0-10 Numeric Is Patient Pain Free? Yes Yes Yes WC - Nurse 3 - General Ulcer D/C NN Start: 04/21/22 10:29 Freq: Status: Active Protocol: Activity Type Activity Date Activity User E-sign Co-sign Detail Recorded Client Recorded Date Recorded By Document 04/21/22 11:33 HI [id number] 04/21/22 11:34 HI Document 04/28/22 11:21 [facility] [id number] 04/28/22 11:22 [facility] Document 05/05/22 10:16 [facility] [id number] 05/05/22 10:17 [facility] 04/21/22 04/28/22 05/05/22 11:33 11:21 10:16 Wound Care Nurse 3 #1 ABD cluster -Ulcer Cleansing Rinsed/ Soap and Water Soap and Water Irrigated with Saline -Foul Odor after Cleansing No No No -Negative Pressure Wound Therapy N/A -Primary Dressing Applied Aquacel AG 4x4 Aquacel AG 4x4, Aquacel AG 4x4, Hydrocolloid Hydrocolloid -Other Dressing DUODERM UNDER DRSG PER [place] GLASS CUT OFF SUPERVISOR FLANGE OVER AQUACEL -Other Covering OSTOMY REAPPLIED -Aquacel AG 4x4 1 1 2 -Hydrocolloid 1 2 Treatment Response Procedure Procedure Tolerated Well Tolerated Well Pain Scale: 0-10 Numeric Is Patient Pain Free? 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 Area of colostomy bag with antibacterial soap pat dry and Aquacel AG to wound bases of the ulcers cover with ComfeeL and then flange softer that is not stiff. And this will be done every other day. Patient is to repeat be referred back to her surgeon Follow-up in 1 week
[2022-05-12 10:03] VITALS: BP 158/76; PULSE 72; TEMP 36.2
--- NOTE | 2022-05-12 11:56 | PN.PCM_ITS ---
History of Present Illness Date of Service: 05/12/22 Chief Complaint: Follow-up on open wounds around her ostomy History of Wound: This is a 87-year-old white female that had a bowel obstruction and was given a colostomy approximately 2 years ago. She lives in assisted living and usually takes care of it with a aide or herself. Poor historian not sure when all the sores developed around the ostomy opening but she has open wounds and skin irritation. Has been going to another wound center and she is getting discouraged because her not doing anything. We talked to our ostomy nurse from the hospital to come over and take a look at what she thought. She also felt her ostomy cuff was too stiff and found her a softer 1 that might not be as irritating and cause any bruising. She has some discoloration like and little bit of a hardness on the inferior side of the ostomy also. She also had developed like a skin tag and a little bridge of skin that we will removed today. Progress of Wound: Wounds today around the stoma look much better. Showing some hypergranulation around the stoma now and most of it is closed small portion in the right lower quadrant area of the stoma area is hardly open. We will discharge her today they can [facility] care in the [facility] since they have [facility] care there and she should be healed in the next week or so with the rest of them she has a tendency to hyper granulate now on all of her wounds. Having to hit them with some nitro sticks. Subjective Subjective Patient is happy she does not have to return Objective Data Objective Data No sign of infection wounds are healing well however [facility]up with the [facility] and do dressing changes should probably always have open sores underneath her flange Vital Signs: Vital Signs Temp Pulse Resp BP Pulse Ox O2 Del Method 97.2 F L 72 16 158/76 H 90 Room Air 05/12/22 10:03 05/12/22 10:03 04/21/22 10:33 05/12/22 10:03 04/15/22 00:41 04/21/22 10:33 Oxygen Delivery Method Room Air Lab / Micro Data Attestation: I reviewed the patient's lab results. Physical Exam Const oriented x3 General Appearance: cooperative Exam Limitations: no limitations Resp normal respiratory effort Effort and Inspection: able to speak in complete sentences Auscultation: clear to auscultation bilaterally Cardio regular rate and regular rhythm Palpation: normal PMI Rate: regular rate Rhythm: regular rhythm GI Auscultation: normoactive bowel sounds Palpation: soft and no hepatosplenomegaly external exam normal Skin no rashes or lesions noted Neuro oriented x3 Psych Appearance: grossly normal Speech: normal speech Thought Content: normal thought content Judgement: judgement good Debridement Note Debridement Note Wound debrided: Cluster abdominal by stoma Type of Debridement: Excisional debridement Anesthesia Used: 5% Lidocaine Gel Depth: Down to and including healthy tissue Percentage of wound debrided: 100 Instrument Used: 7mm curette Severity: Limited To Skin Breakdown Amount of bleeding with debridement: None Bleeding Controlled with: Silver Nitrate Patient tolerated procedure: Patient tolerated procedure well Post-Debridement Measurements and Additional Note: Post-Debridement Measurements/Treatment - Nurse 1 - General Ulcer Assessment Start: 04/21/22 10:29 Freq: Status: Active Protocol: TIMMY Activity Type Activity Date Activity User E-sign Co-sign Detail Recorded Client Recorded Date Recorded By Document 04/21/22 10:33 KS [id number] 04/21/22 10:36 KS Document 04/28/22 10:47 KS [id number] 04/28/22 10:49 KS Document 05/05/22 10:07 KS [id number] 05/05/22 10:09 AK Document 05/12/22 10:03 AK [id number] 05/12/22 10:05 AK 04/21/22 04/28/22 05/05/22 10:33 10:47 10:07 - Today's Visit Information Type of service Follow-up Visit Follow-up Visit Follow-up Visit (Physician/MERCHANDISING TEAM LEAD (Physician/MERCHANDISING TEAM LEAD (Physician/MERCHANDISING TEAM LEAD ) ) ) Arrival Mode Ambulatory, Ambulatory, Ambulatory Walker Walker Transfer Assistance None Patient Identification Verified (Name & Yes Yes Yes ) Patient Requires Transmission-Based No No No Precautions Safety Precautions NA Vital Signs Temperature (97.8 F-99.1 F) 96.6 F L 96.6 F L 96.7 F L Temperature Source Temporal Temporal Temporal Pulse Rate (60-100) 79 69 70 Pulse Location Monitor Monitor Monitor Respiratory Rate (12-18) 16 Respiratory rate source Observation Oxygen Delivery Method Room Air Blood Pressure (90/60-120/80) 146/66 H 144/75 H 158/67 H Blood Pressure Mean (mm Hg) 92 98 97 Source Monitor Monitor Monitor Position Sitting Blood Pressure Location Right Arm History Since Last Visit- (Skip if this is Patient's initial visit) Have you changed medications since your No No last visit? Any new allergies or adverse reactions No No No Had a fall/change in ADL's that may No No No increase risk of falls Signs or symptoms of abuse and/or No No No neglect since last visit Have you been in the hospital since your No No No last visit? Has dressing in place as prescribed Yes Yes Yes Has compression in place as prescribed N/A N/A N/A Has offloadiing in place as prescribed N/A N/A N/A Experienced any changes in pain level or No No No management Left Footwear Regular Shoe Regular Shoe Regular Shoe Right Footwear Regular Shoe Regular Shoe Regular Shoe Pain Scale: 0-10 Numeric Is Patient Pain Free? Yes Yes Yes 05/12/22 10:03 WC - Today's Visit Information Type of service Follow-up Visit (Physician/MERCHANDISING TEAM LEAD ) Arrival Mode Ambulatory Transfer Assistance Patient Identification Verified (Name & No ) Patient Requires Transmission-Based No Precautions Safety Precautions NA Vital Signs Temperature (97.8 F-99.1 F) 97.2 F L Temperature Source Temporal Pulse Rate (60-100) 72 Pulse Location Monitor Respiratory Rate (12-18) Respiratory rate source Oxygen Delivery Method Blood Pressure (90/60-120/80) 158/76 H Blood Pressure Mean (mm Hg) 103 Source Monitor Position Blood Pressure Location History Since Last Visit- (Skip if this is Patient's initial visit) Have you changed medications since your No last visit? Any new allergies or adverse reactions No Had a fall/change in ADL's that may No increase risk of falls Signs or symptoms of abuse and/or No neglect since last visit Have you been in the hospital since your No last visit? Has dressing in place as prescribed Yes Has compression in place as prescribed N/A Has offloadiing in place as prescribed N/A Experienced any changes in pain level or No management Left Footwear Regular Shoe Right Footwear Regular Shoe Pain Scale: 0-10 Numeric Is Patient Pain Free? Yes WC - Nurse 1 - General Ulcer Measurement Start: 04/21/22 10:29 Freq: Status: Active Protocol: Activity Type Activity Date Activity User E-sign Co-sign Detail Recorded Client Recorded Date Recorded By Document 04/21/22 10:33 KS [id number] 04/21/22 10:36 [place] Document 04/28/22 10:47 AK [id number] 04/28/22 10:49 AK Document 05/05/22 10:07 AK [id number] 05/05/22 10:09 AK Document 05/12/22 10:03 AK [id number] 05/12/22 10:05 AK 04/21/22 04/28/22 05/05/22 10:33 10:47 10:07 Wound Center Nurse 1 #1 ABD cluster -Combined with other wound No No No -Current Size (cm) - Length 6 6 7 -Current Size (cm) - Width 5 3 0.5 -Current Size (cm) - Depth 0.1 0.1 0.1 -Total Square Cm 30 18 3.5 -Date of Last Picture (Recall this 04/21/22 field) -Photo Taken Yes No Yes -Epithelialization Small 1-33% -Tunneling No No No -Undermining/Tunneling No No No -Circular Undermining No No No -Change in Wound Grade/Stage No No -Exudate Amt Medium Medium Medium -Exudate Type Serosanguineous Serosanguineous Serosanguineous -Wound Margin Distinct, Distinct, Distinct, Outline Outline Outline Attached Attached Attached -Granulation Amt Medium (34-66%) Large (67-100%) Medium (34-66%) -Granulation Quality Red Bogard Bogard,Red -Slough/Fibrin Yes No Yes -Necrosis Amt Medium (34-66%) None Present (0 Small (1-33%) %) -Necrotic Tissue Type Adherent Slough Adherent Slough -Structure Exposed N/A N/A -Texture (Linda-wound Skin Appearance) Assessed, Assessed, Assessed,Rash Scarring Excoriation, Rash -Moisture (Linda-wound Skin Appearance) Assessed No Abnormality, No Abnormality, Assessed Assessed -Color (Linda-wound Skin Appearance) No Abnormality, Assessed, Assessed, Erythema Erythema Erythema -Temperature (Linda-wound Skin No Abnormality No Abnormality No Abnormality Appearance) (Pt Warm) (Pt Warm) (Pt Warm) -Tenderness on Palpation (Linda-wound No No No Skin Appearance) -Ulcer Cleansing Soap and Water Soap and Water Soap and Water -Foul Odor after Cleansing No No No -Anesthetic Used 4% Lidocaine 4% Lidocaine 5% Lidocaine Solution Solution Gel -Wound Comment(s) Flange taped on with stool all underneath. 05/12/22 10:03 Wound Center Nurse 1 #1 ABD cluster -Combined with other wound No -Current Size (cm) - Length 6 -Current Size (cm) - Width 2 -Current Size (cm) - Depth 0.1 -Total Square Cm 12 -Date of Last Picture (Recall this field) -Photo Taken No -Epithelialization -Tunneling No -Undermining/Tunneling No -Circular Undermining No -Change in Wound Grade/Stage No -Exudate Amt Small -Exudate Type Serosanguineous -Wound Margin Distinct, Outline Attached -Granulation Amt None Present (0 %) -Granulation Quality N/A -Slough/Fibrin No -Necrosis Amt None Present (0 %) -Necrotic Tissue Type -Structure Exposed N/A -Texture (Linda-wound Skin Appearance) Assessed,Rash -Moisture (Linda-wound Skin Appearance) No Abnormality, Assessed -Color (Linda-wound Skin Appearance) No Abnormality, Assessed -Temperature (Linda-wound Skin No Abnormality Appearance) (Pt Warm) -Tenderness on Palpation (Linda-wound No Skin Appearance) -Ulcer Cleansing Soap and Water -Foul Odor after Cleansing -Anesthetic Used 4% Lidocaine Solution -Wound Comment(s) WC - Nurse 2 - General Ulcer CM Notes Start: 04/21/22 10:29 Freq: Status: Active Protocol: Activity Type Activity Date Activity User E-sign Co-sign Detail Recorded Client Recorded Date Recorded By Document 04/21/22 10:44 MW [id number] 04/21/22 10:47 MW Document 04/28/22 11:01 MW [id number] 04/28/22 11:05 MW Document 05/05/22 10:09 MW [id number] 05/05/22 10:12 MW Document 05/12/22 10:07 MW [id number] 05/12/22 10:10 MW 04/21/22 04/28/22 05/05/22 10:44 11:01 10:09 Wound Center Nurse 2 #1 ABD cluster -Time 10:44 11:01 10:11 -Correct Patient Yes Yes Yes -Correct Side, Site, Position Yes Yes Yes -Correct Procedure Yes Yes Yes -Procedure Performed Yes Yes Yes -Type of Procedure Debridement Debridement Debridement -Clinical Debridement Subcutaneous Subcutaneous Subcutaneous -Tissue Removed Subcutaneous Subcutaneous Subcutaneous -Post Debridement (cm) - Length 6.0 6.0 1.0 -Post Debridement (cm) - Width 6.5 3.0 1.5 -Post Debridement (cm) - Depth 0.1 0.1 0.1 -Total Square (Post) (cm) 39.00 18.00 1.50 -Area of Debridement (cm) - Length 6.0 6.0 1.0 -Area of Debridement (cm) - Width 6.5 3.0 1.5 -Total Square (Area) (cm) 39.00 18.00 1.50 -Tunneling No No No -Undermining/Tunneling No No No -Circular Undermining No No No -Wound/Ulcer Outcome Not Healed Not Healed Not Healed -Ulcer Cleansing Rinsed/ Rinsed/ Rinsed/ Irrigated with Irrigated with Irrigated with Saline Saline Saline -Foul Odor after Cleansing No No No -Bioengineered Tissue No No No -Bleeding Controlled with Pressure Pressure,Silver Pressure Nitrate -Treatment Response Procedure Procedure Procedure Tolerated Well Tolerated Well Tolerated Well -Offloading No No No -Debridement - Subq, 1st 20sq cm Yes Yes Yes -Debridement, SubQ, ea addt'l 20sq cm 1 or part thereof Pain Scale: 0-10 Numeric Is Patient Pain Free? Yes Yes Yes 05/12/22 10:07 Wound Center Nurse 2 #1 ABD cluster -Time 10:08 -Correct Patient Yes -Correct Side, Site, Position Yes -Correct Procedure Yes -Procedure Performed No -Type of Procedure -Clinical Debridement -Tissue Removed -Post Debridement (cm) - Length -Post Debridement (cm) - Width -Post Debridement (cm) - Depth -Total Square (Post) (cm) -Area of Debridement (cm) - Length -Area of Debridement (cm) - Width -Total Square (Area) (cm) -Tunneling No -Undermining/Tunneling No -Circular Undermining No -Wound/Ulcer Outcome Healed- Epithelialized -Ulcer Cleansing -Foul Odor after Cleansing -Bioengineered Tissue -Bleeding Controlled with Silver Nitrate -Treatment Response Procedure Tolerated Well -Offloading -Debridement - Subq, 1st 20sq cm -Debridement, SubQ, ea addt'l 20sq cm or part thereof Pain Scale: 0-10 Numeric Is Patient Pain Free? Yes - Nurse 3 - General Ulcer D/C NN Start: 04/21/22 10:29 Freq: Status: Active Protocol: Activity Type Activity Date Activity User E-sign Co-sign Detail Recorded Client Recorded Date Recorded By Document 04/21/22 11:33 KS [id number] 04/21/22 11:34 KS Document 04/28/22 11:21 [facility] [id number] 04/28/22 11:22 [facility] Document 05/05/22 10:16 [facility] [id number] 05/05/22 10:17 [facility] Document 05/12/22 11:03 KS [id number] 05/12/22 11:04 KS 04/21/22 04/28/22 05/05/22 11:33 11:21 10:16 Wound Care Nurse 3 #1 ABD cluster -Ulcer Cleansing Rinsed/ Soap and Water Soap and Water Irrigated with Saline -Foul Odor after Cleansing No No No -Negative Pressure Wound Therapy N/A -Primary Dressing Applied Aquacel AG 4x4 Aquacel AG 4x4, Aquacel AG 4x4, Hydrocolloid Hydrocolloid -Other Dressing DUODERM UNDER DRSG PER BRYON DRY CELL SEALER FLANGE OVER AQUACEL -Other Covering OSTOMY REAPPLIED -Aquacel Extra -Aquacel AG 4x4 1 1 2 -Hydrocolloid 1 2 Treatment Response Procedure Procedure Tolerated Well Tolerated Well Pain Scale: 0-10 Numeric Is Patient Pain Free? Yes Yes Yes - Visit Discharge Discharge Condition Stable Stable Stable Ambulatory Status Ambulatory, Ambulatory, Ambulatory, Walker Walker Walker Transportation [facility] Accompanied by [facility] Medication Reconcilliation completed & Yes provided to patient/care provider Clinical Summary of Care Provided Yes Facility Type Finishing [facility] Supervisor Care Facility Other [facility]IV[facility] 05/12/22 11:03 Wound Care Nurse 3 #1 ABD cluster -Ulcer Cleansing Rinsed/ Irrigated with Saline -Foul Odor after Cleansing No -Negative Pressure Wound Therapy N/A -Primary Dressing Applied Aquacel Extra -Other Dressing comform -Other Covering -Aquacel Extra 1 -Aquacel AG 4x4 -Hydrocolloid Treatment Response Pain Scale: 0-10 Numeric Is Patient Pain Free? 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 Area of colostomy bag with antibacterial soap pat dry and Aquacel AG to wound bases of the ulcers cover with ComfeeL and then flange softer that is not stiff. And this will be done every other day. Patient is to repeat be referred back to her surgeon Discharge from the wound center follow-up as needed
== END 2022-05-15 23:59 | disposition home or self-care (01) ==
LOC: WC 10:00
PROVIDERS: PCP Family Medicine; Visit Provider Nurse Practitioner
DX: K94.09 Other complications of colostomy (principal); L98.492 Non-pressure chronic ulcer of skin of other sites with fat layer exposed; L98.491 Non-pressure chronic ulcer of skin of other sites limited to breakdown of skin
CPT/HCPCS: 11042; 11045; 17250; 99213; G0463